=== PATIENT | male | born 1950 | race Caucasian/White ===

== ENCOUNTER 2020-01-10 11:58 | Emergency (ER) | payer MEDICARE, BC ==
[2020-01-10] MEDS ORDERED: Sodium Chloride 0.9% 10 ML Syringe FLUSH PRN (12:35)
--- NOTE | 2020-01-10 12:46 | EDM.PDOC ---
ED HPI GENERAL MEDICAL PROBLEM - General Chief Complaint: Cardiovascular Problem Stated Complaint: [facility] Time Seen by Provider: 01/10/20 12:08 Source of Information: Reports: Patient, EMS History Limitations: Reports: No Limitations - History of Present Illness INITIAL COMMENTS - FREE TEXT/NARRATIVE: The patient presents by [facility] for his defibrillator going off and being lightheaded. He said this started on Wednesday. He got lightheaded and then his defibrillator went off. He felt better after that. He was on his computer this morning and got lightheaded again. His defibrillator did not go off today. He has no fever, chills, cough, chest pain, shortness of breath, abdominal pain, nausea or vomiting. He has an appointment tomorrow with Dr Chun for a pacemaker check. Onset: Sudden Duration: Day(s): Severity: Moderate Improves with: Reports: None Worsens with: Reports: None Associated Symptoms: Denies: Chest Pain, Cough, Fever/Chills, Headaches, Nausea/ Vomiting, Shortness of Breath - Related Data Allergies Allergy/AdvReac Type Severity Reaction Status Date / Time No Known Allergies Allergy Verified 01/10/20 12:09 Home Meds: Home Meds Digoxin [Digox] 0.125 mg PO ASDIRECTED 09/22/16 [History] Furosemide [Lasix] 40 mg PO BID 09/22/16 [History] Losartan [Cozaar] 25 mg PO DAILY 09/22/16 [History] Rosuvastatin Calcium [Crestor] 20 mg PO DAILY 09/22/16 [History] Warfarin [Coumadin] 5 mg PO DAILY 09/22/16 [History] Aspirin 81 mg PO DAILY 01/10/20 [History] Calcium Carbonate/Vitamin D3 [Calcium 600 + Vit D Tablet] 1 tab PO DAILY [History] Clindamycin/Niacinamide [Clindamycin 1%-Niacinamide 4%] 1 applic TOP DAILY 01/09 [History] Insulin Aspart [NovoLOG] 15 units SQ ASDIRECTED 01/10/20 [History] Insulin Glargine,Hum.Rec.Anlog [Basaglar Kwikpen U-100] 58 units SQ DAILY [History] Methimazole [Tapazole] 10 mg PO DAILY 01/10/20 [History] Metoprolol Succinate 100 mg PO DAILY 01/10/20 [History] Nitroglycerin 0.4 mg PO ASDIRECTED PRN 01/10/20 [History] Potassium Chloride 10 meq PO DAILY 01/10/20 [History] metFORMIN [Glucophage] 1,000 mg PO DAILY 01/10/20 [History] Past Medical History HEENT History: Reports: Impaired Vision Other HEENT History: glasses Cardiovascular History: Reports: Afib, High Cholesterol, Hypertension, Pacemaker Endocrine/Metabolic History: Reports: Diabetes, Type II, Hyperthyroidism - Past Surgical History Cardiovascular Surgical History: Reports: AICD Musculoskeletal Surgical History: Reports: Joint Replacement Other Musculoskeletal Surgeries/Procedures:: R knee replacement in 2009 Social & Family History - Family History Family Medical History: Noncontributory - Tobacco Use Smoking Status *Q: Former Smoker Used Tobacco, but Quit: Yes Month/Year Tobacco Last Used: 2010 - Caffeine Use Caffeine Use: Reports: Coffee - Recreational Drug Use Recreational Drug Use: No ED ROS GENERAL - Review of Systems Review Of Systems: See Below Constitutional: Reports: No Symptoms HEENT: Reports: No Symptoms Respiratory: Reports: No Symptoms Cardiovascular: Reports: Lightheadedness, Palpitations. Denies: Chest Pain Endocrine: Reports: No Symptoms GI/Abdominal: Reports: No Symptoms : Reports: No Symptoms Musculoskeletal: Reports: No Symptoms Neurological: Reports: No Symptoms ED EXAM, GENERAL - Physical Exam Exam: See Below Exam Limited By: No Limitations General Appearance: Alert, No Apparent Distress Ears: Normal External Exam Nose: Normal Inspection Head: Atraumatic, Normocephalic Neck: Normal Inspection Respiratory/Chest: No Respiratory Distress, Lungs Clear, Normal Breath Sounds Cardiovascular: Regular Rate, Rhythm, No Edema, No Murmur GI/Abdominal: Soft, Non-Tender, No Organomegaly, No Mass Back Exam: Normal Inspection Extremities: Normal Inspection EKG INTERPRETATION EKG Date: 01/10/20 Time: 12:33 Rhythm: Other (Ventricular paced rhythm) Course - Vital Signs Last Recorded V/S: Last Vital Signs Temp 97.2 F 01/10/20 12:02 Pulse 85 01/10/20 12:02 Resp 16 01/10/20 12:02 BP 145/96 H 01/10/20 12:02 Pulse Ox 98 01/10/20 12:02 - Orders/Labs/Meds Orders: Active Orders 24 hr Category Date Time Status Cardiac Monitoring [RC] . DIRECTED Care 01/10/20 12:35 Active EKG Documentation Completion [] STAT Care 01/10/20 12:36 Active Peripheral IV Care [RC] . DIRECTED Care 01/10/20 12:36 Active Amiodarone In Dextrose,Iso-Osm [Nexterone in Dextrose Med 01/10/20 14:30 Active 150 MG/100 ML] 150 mg Premix Bag 1 bag IV .BOLUS Amiodarone In Dextrose,Iso-Osm [Nexterone in Dextrose Med 01/10/20 14:30 Active 360 MG/200 ML] 360 mg in 200 ml IV ASDIRECTED Sodium Chloride 0.9% [Saline Flush] Med 01/10/20 12:35 Active 10 ml FLUSH ASDIRECTED PRN Peripheral IV Insertion Adult [OM.PC] Stat Oth 01/10/20 12:35 Ordered Medication Orders Amiodarone HCl/Dextrose (Nexterone In Dextrose 360 Mg/200 Ml) 360 mg in 200 mls @ 33.333 mls/hr IV ASDIRECTED ZAC; Protocol Amiodarone HCl/Dextrose 150 mg (/ Premix) 100 mls @ 600 mls/hr IV .BOLUS ONE Stop: 01/10/20 14:39 Sodium Chloride (Saline Flush) 10 ml FLUSH ASDIRECTED PRN PRN Reason: Keep Vein Open Last Admin: 01/10/20 12:48 Dose: 10 ml Labs: Laboratory Tests 01/10/20 01/10/20 01/10/20 Range/Units 12:53 12:53 12:53 WBC 8.62 (4.23-9.07) K/mm3 RBC 4.57 L (4.63-6.08) M/mm3 Hgb 14.0 (13.7-17.5) gm/dl Hct 40.7 (40.1-51.0) % MCV 89.1 (79.0-92.2) fl MCH 30.6 (25.7-32.2) pg MCHC 34.4 (32.2-35.5) g/dl RDW Std Deviation 41.8 (35.1-43.9) fL Plt Count 208 (163-337) K/mm3 MPV 10.3 (9.4-12.3) fl Neut % (Auto) 71.1 H (34.0-67.9) % Lymph % (Auto) 16.9 L (21.8-53.1) % [place] % (Auto) 9.0 (5.3-12.2) % Eos % (Auto) 2.4 (0.8-7.0) Baso % (Auto) 0.5 (0.1-1.2) % Neut # (Auto) 6.12 H (1.78-5.38) K/mm3 Lymph # (Auto) 1.46 (1.32-3.57) K/mm3 [place] # (Auto) 0.78 (0.30-0.82) K/mm3 Eos # (Auto) 0.21 (0.04-0.54) K/mm3 Baso # (Auto) 0.04 (0.01-0.08) K/mm3 PT (9.7-12.0) SECONDS INR Sodium 139 (136-145) mEq/L Potassium 3.7 (3.5-5.1) mEq/L Chloride 102 (98-107) mEq/L Carbon Dioxide 23 (21-32) mEq/L Anion Gap 17.7 H (5-15) BUN 14 (7-18) mg/dL Creatinine 1.0 (0.7-1.3) mg/dL Est Cr Clr Drug Dosing 71.68 mL/min Estimated GFR (MDRD) > 60 (>60) mL/min BUN/Creatinine Ratio 14.0 (14-18) Glucose 133 H (80-115) mg/dL Calcium 9.0 (8.5-10.1) mg/dL Total Bilirubin 0.9 (0.2-1.0) mg/dL AST 29 (15-37) U/L ALT 26 (16-63) U/L Alkaline Phosphatase 86 (46-116) U/L Troponin I < 0.017 (0.00-0.056) ng/mL NT-Pro-B Natriuret Pep 1511 H (0-125) pg/mL Total Protein 7.6 (6.4-8.2) g/dl Albumin 3.6 (3.4-5.0) g/dl Globulin 4.0 gm/dL Albumin/Globulin Ratio 0.9 L (1-2) Digoxin (0.9-2.0) ng/mL 01/10/20 01/10/20 Range/Units 12:53 12:53 WBC (4.23-9.07) K/mm3 RBC (4.63-6.08) M/mm3 Hgb (13.7-17.5) gm/dl Hct (40.1-51.0) % MCV (79.0-92.2) fl MCH (25.7-32.2) pg MCHC (32.2-35.5) g/dl RDW Std Deviation (35.1-43.9) fL Plt Count (163-337) K/mm3 MPV (9.4-12.3) fl Neut % (Auto) (34.0-67.9) % Lymph % (Auto) (21.8-53.1) % [place] % (Auto) (5.3-12.2) % Eos % (Auto) (0.8-7.0) Baso % (Auto) (0.1-1.2) % Neut # (Auto) (1.78-5.38) K/mm3 Lymph # (Auto) (1.32-3.57) K/mm3 [place] # (Auto) (0.30-0.82) K/mm3 Eos # (Auto) (0.04-0.54) K/mm3 Baso # (Auto) (0.01-0.08) K/mm3 PT 32.1 H (9.7-12.0) SECONDS INR 3.14 Sodium (136-145) mEq/L Potassium (3.5-5.1) mEq/L Chloride (98-107) mEq/L Carbon Dioxide (21-32) mEq/L Anion Gap (5-15) BUN (7-18) mg/dL Creatinine (0.7-1.3) mg/dL Est Cr Clr Drug Dosing mL/min Estimated GFR (MDRD) (>60) mL/min BUN/Creatinine Ratio (14-18) Glucose (80-115) mg/dL Calcium (8.5-10.1) mg/dL Total Bilirubin (0.2-1.0) mg/dL AST (15-37) U/L ALT (16-63) U/L Alkaline Phosphatase (46-116) U/L Troponin I (0.00-0.056) ng/mL NT-Pro-B Natriuret Pep (0-125) pg/mL Total Protein (6.4-8.2) g/dl Albumin (3.4-5.0) g/dl Globulin gm/dL Albumin/Globulin Ratio (1-2) Digoxin 0.7 L (0.9-2.0) ng/mL Meds: Medications Generic Name Dose Route Start Last Admin Trade Name Freq PRN Reason Stop Dose Admin Amiodarone HCl/Dextrose 360 mg in 200 mls @ 33.333 mls/hr 01/10/20 14:30 Nexterone In Dextrose 360 Mg/200 Ml IV ASDIRECTED ZAC Protocol Amiodarone HCl/Dextrose 150 mg 100 mls @ 600 mls/hr 01/10/20 14:30 / Premix IV 01/10/20 14:39 .BOLUS ONE Sodium Chloride 10 ml 01/10/20 12:35 01/10/20 12:48 Saline Flush FLUSH 10 ml ASDIRECTED PRN Administration Keep Vein Open Discontinued Medications Generic Name Dose Route Start Last Admin Trade Name Freq PRN Reason Stop Dose Admin Amiodarone HCl 150 mg/ 103 mls @ 600 mls/hr 01/10/20 14:16 Dextrose/Water IV 01/10/20 14:26 .BOLUS ONE - Re-Assessments/Exams Free Text/Narrative Re-Assessment/Exam: 01/10/20 14:37 I ordered an IV saline lock, labs, EKG, and CXR. His CXR shows cardiomegaly with AICD. Findings are stable from prior chest x-ray. Nothing acute is otherwise seen on portable chest x-ray. His EKG shows a ventriculare paced rhythm. His CBC and CMP look good. His INR was therapeutic at 3.14. His troponin was negative. His BNP was elevated at 1511. His digoxin level was a little low at 0.7. I had his pacer/defibrillator interrogated and he says there was VT/VF that was defibrillated. He also had 141 nonsustained ventricular tachy episodes. Leads are stable and battery is good. They did estimate that he was retaining fluid. I called [facility] in [place] and talked with Dr Blandon the pipe insulator helper immigration lawyer and he ordered an amiodarone bolus and drip and he would like the patient down there today. I also talked with Dr Mustafa the hospitalist immigration lawyer. Departure - Departure Time of Disposition: 14:45 Disposition: DC/Tfer to [facility] 02 Reason for Transfer *Q: Other Condition: Fair Clinical Impression: Defibrillator discharge, Ventricular tachycardia Referrals: Verenice Chun MD [Primary Care Provider] - Forms: ED Department Discharge Sepsis Event Note - Evaluation Sepsis Screening Result: No Definite Risk - Focused Exam Vital Signs: Vital Signs Temp Pulse Resp BP Pulse Ox 01/10/20 12:02 97.2 F 85 16 145/96 H 98 Date Exam was Performed: 01/10/20 Time Exam was Performed: 14:32 - My Orders Last 24 Hours: My Active Orders 01/10/20 12:35 Cardiac Monitoring [RC] . DIRECTED Sodium Chloride 0.9% [Saline Flush] 10 ml FLUSH ASDIRECTED PRN Peripheral IV Insertion Adult [OM.PC] Stat 01/10/20 12:36 EKG Documentation Completion [RC] STAT Peripheral IV Care [RC] . DIRECTED 01/10/20 14:30 Amiodarone In Dextrose,Iso-Osm [Nexterone in Dextrose 150 MG/100 ML] 150 mg Premix Bag 1 bag IV .BOLUS Amiodarone In Dextrose,Iso-Osm [Nexterone in Dextrose 360 MG/200 ML] 360 mg in 200 ml IV ASDIRECTED - Assessment/Plan Last 24 Hours: My Active Orders 01/10/20 12:35 Cardiac Monitoring [RC] . DIRECTED Sodium Chloride 0.9% [Saline Flush] 10 ml FLUSH ASDIRECTED PRN Peripheral IV Insertion Adult [OM.PC] Stat 01/10/20 12:36 EKG Documentation Completion [RC] STAT Peripheral IV Care [RC] . DIRECTED 01/10/20 14:30 Amiodarone In Dextrose,Iso-Osm [Nexterone in Dextrose 150 MG/100 ML] 150 mg Premix Bag 1 bag IV .BOLUS Amiodarone In Dextrose,Iso-Osm [Nexterone in Dextrose 360 MG/200 ML] 360 mg in 200 ml IV ASDIRECTED
--- NOTE | 2020-01-10 13:00 | CR ---
Chest: Portable view of the chest was obtained. Comparison: Previous chest x-ray of 09/22/16. Heart is enlarged. AICD is noted. Tortuous thoracic aorta is seen. Lungs are clear with no acute parenchymal change. Bony structures are grossly intact. Impression: 1. Cardiomegaly with AICD. Findings are stable from prior chest x-ray. 2. Nothing acute is otherwise seen on portable chest x-ray. Diagnostic code #2 Study was dictated in MDT
[2020-01-10] MEDS ORDERED: Amiodarone 150 MG in Dextrose 5% in Water 100 ML IV ONE ×2 (14:16)
[2020-01-10] MEDS ORDERED: Amiodarone In Dextrose,Iso-Osm 150 MG in Premix Bag 1 BAG IV ONE ×2 (14:30)
[2020-01-10 14:51] VITALS: PULSE 86
[2020-01-10 15:50] VITALS: BP 131/73
== END 2020-01-10 15:24 ==
LOC: JD.ED 11:58
DX: T82.897A Other specified complication of cardiac prosthetic devices, implants and grafts, initial encounter (principal); I47.2 Ventricular tachycardia; I10 Essential (primary) hypertension; E11.9 Type 2 diabetes mellitus without complications; E78.00 Pure hypercholesterolemia, unspecified; I48.91 Unspecified atrial fibrillation; E05.90 Thyrotoxicosis, unspecified without thyrotoxic crisis or storm; Z87.891 Personal history of nicotine dependence; Z79.899 Other long term (current) drug therapy; Z79.82 Long term (current) use of aspirin; Z79.01 Long term (current) use of anticoagulants; Z79.4 Long term (current) use of insulin
CPT/HCPCS: 36415; 71045; 71045-26; 80053; 80162; 83880; 84484; 85025; 85610; 93005; 93010; 96365; 99284; 99285-25; J0282

== ENCOUNTER 2022-04-16 11:18 | Day surgery (SDC) | payer MEDICARE, OTHER ==
[2022-04-16] MEDS: Polymyxin B/Trimethoprim 10 ML Bottle EYERT SCH ×3 (11:00→12:56)
[2022-04-16] MEDS: Brimonidine 0.2% Ophth Soln 5 ML Bottle EYERT SCH ×3 (11:05→12:56)
[2022-04-16] MEDS: Phenylephrine 2.5% Ophth Soln 2 ML Bot EYERT SCH ×5 (11:11→12:40)
[2022-04-16] MEDS: Tropicamide 1% Ophth Soln 15 ML Bottle EYERT SCH ×4 (11:15→11:55)
[~2022-04-16 11:18] MED LIST: Cefuroxime 10 MG/ML SYRINGE EYERT SCH; Lidocaine 1% PF 2 ML SDV INJECT SCH; Pilocarpine 4% Ophth Soln 15 ML Bot EYERT SCH
[2022-04-16] MEDS: Tetracaine HCl/PF 0.5% 4 ML Bottle EYEBOTH SCH ×4 (12:20→12:45)
[2022-04-16 13:10] VITALS: BP 136/74; PULSE 82
== END 2022-04-16 13:08 | disposition home or self-care (01) ==
LOC: JD.SDS 11:18
PROVIDERS: ATTEND Ophthalmology
DX: E11.36 Type 2 diabetes mellitus with diabetic cataract (principal); H25.813 Combined forms of age-related cataract, bilateral; H35.3131 Nonexudative age-related macular degeneration, bilateral, early dry stage; H35.363 Drusen (degenerative) of macula, bilateral; H31.093 Other chorioretinal scars, bilateral; H16.223 Keratoconjunctivitis sicca, not specified as Sjogren's, bilateral; I10 Essential (primary) hypertension; E78.00 Pure hypercholesterolemia, unspecified; E66.9 Obesity, unspecified; Z98.890 Other specified postprocedural states; Z87.891 Personal history of nicotine dependence; Z79.899 Other long term (current) drug therapy; Z68.38 Body mass index [BMI] 38.0-38.9, adult
CPT/HCPCS: 66984; J0697; C1780

== ENCOUNTER 2022-05-14 06:41 | Day surgery (SDC) | payer MEDICARE, OTHER ==
[2022-05-14] MEDS: Polymyxin B/Trimethoprim 10 ML Bottle EYELF SCH ×3 (07:08→08:19)
[2022-05-14] MEDS ORDERED: Pilocarpine 4% Ophth Soln 15 ML Bot EYELF SCH (07:12)
[2022-05-14] MEDS: Brimonidine 0.2% Ophth Soln 5 ML Bottle EYELF SCH ×3 (07:12→08:19)
[2022-05-14] MEDS: Phenylephrine 2.5% Ophth Soln 2 ML Bot EYELF SCH ×5 (07:21→08:01)
[2022-05-14] MEDS: Tropicamide 1% Ophth Soln 15 ML Bottle EYELF SCH ×4 (07:24→07:45)
[2022-05-14] MEDS ORDERED: Cefuroxime 10 MG/ML SYRINGE EYELF SCH (07:30)
[2022-05-14] MEDS ORDERED: Lidocaine 1% PF 2 ML SDV INJECT SCH (07:30)
[2022-05-14] MEDS: Tetracaine HCl/PF 0.5% 4 ML Bottle EYELF SCH ×4 (07:52→08:09)
[2022-05-14 08:46] VITALS: BP 132/68; PULSE 76
== END 2022-05-14 08:30 | disposition home or self-care (01) ==
LOC: JD.SDS 06:41
PROVIDERS: ATTEND Ophthalmology
DX: E11.36 Type 2 diabetes mellitus with diabetic cataract (principal); H25.812 Combined forms of age-related cataract, left eye; H17.811 Minor opacity of cornea, right eye; H31.093 Other chorioretinal scars, bilateral; H16.223 Keratoconjunctivitis sicca, not specified as Sjogren's, bilateral; I11.0 Hypertensive heart disease with heart failure; I50.9 Heart failure, unspecified; E78.00 Pure hypercholesterolemia, unspecified; J44.9 Chronic obstructive pulmonary disease, unspecified; I48.91 Unspecified atrial fibrillation; E03.9 Hypothyroidism, unspecified; M19.90 Unspecified osteoarthritis, unspecified site; I25.2 Old myocardial infarction; G47.33 Obstructive sleep apnea (adult) (pediatric); E66.9 Obesity, unspecified; E05.90 Thyrotoxicosis, unspecified without thyrotoxic crisis or storm; Z68.38 Body mass index [BMI] 38.0-38.9, adult; Z95.1 Presence of aortocoronary bypass graft; Z87.891 Personal history of nicotine dependence; Z79.899 Other long term (current) drug therapy; Z79.01 Long term (current) use of anticoagulants; Z79.84 Long term (current) use of oral hypoglycemic drugs; Z98.890 Other specified postprocedural states; Z96.651 Presence of right artificial knee joint
CPT/HCPCS: J0697